=== PATIENT | female | born 1930 | race Caucasian/White ===

== ENCOUNTER 2017-03-23 05:41 | Day surgery (SDC) | payer MEDICARE, OTHER ==
[~2017-03-23] VITALS: Ht 170.2 cm; Wt 69.4 kg
[2017-03-23] VITALS (10 sets, daily range): BP systolic 103–118; BP diastolic 46–64; PULSE 62–78; RESP 11–20; O2SAT 93–100
[~2017-03-23 05:41] MED LIST: CHOL10008 PO; Lactated Ringer's 1,000 ML IV ONE; MULT-1018 PO; TIMO5DRO5 AFFECT_EYE
[2017-03-23] MEDS ORDERED: Dexamethasone 4 mg/mL Inj ONE (05:42)
[2017-03-23] MEDS ORDERED: MetoCLOpramide 5 mg/mL 2 mL Inj ONE (05:42)
[2017-03-23] MEDS ORDERED: Propofol 10,000 mCg/mL 20 mL Inj ONE (05:42)
[2017-03-23] MEDS ORDERED: Ondansetron 2 mg/mL 2 mL Inj ONE (05:42)
[2017-03-23] MEDS ORDERED: CeFAZolin Inj 2 GM in IV Premix 1 EACH IV SCH (06:00)
--- NOTE | 2017-03-23 07:14 | PCM.HPANE ---
Patient Data Surgeon Admitting Provider: Attending Provider:Jose Francisco Craig MD Primary Care Physician:Hung Other Provider:Aurora Allen Anesthesia Reason for Visit Squamous Cell Carcinoma Of Face Ht/WT & BMI Height (Feet): 5 Height (Inches): 7 Weight (Kilograms): 69.4 Body Mass Index 24.00 Allergies Coded Allergies: No Known Allergies (Unverified , 03/19/17) Past Anesthesia History Anesthesia History: Denies:: Anesthesia Reactions, Malignant Hyperthermia Diabetes History Hx Diabetes?: No MRSA MRSA: No Medications Home Meds Incl Beta Jose Alejandro: No Reported Medications Multivitamin (Multi Vitamin Daily)1 Each Tablet1 Each PO DAILY 30 Days Ref 0 CHEWABLE 03/19/17 Cholecalciferol (Vitamin D3) (Vitamin D3)1,000 Unit Tab.chew1,000 Unit PO DAILY 03/19/17 Timolol Maleate 5 Ml Drops1 Gtt AFFECT_EYE DIRECTED PRN GLAUCOMA 03/19/17 History History of ENT Problems?: No HEENT History: Positive for:: Cataracts (STABLE CATARACT) Glaucoma Denture Type: None Teeth Condition: Within Normal Limits Hx of Heart Problems?: No Cardiovascular History: Denies:: Heart Murmur Hypertension Hx of Respiratory Problem?: Yes Respiratory History: Positive for:: Pulmonary Embolism (HX OF) Denies:: Use of C-PAP Machine Hx Neurologic Problems?: No Hx of GI Problems?: Yes Hx of Problems?: No Female Hx: Denies:: Currently Skin History: Positive for:: History Skin Disorders? (FACIAL SKIN CA=CURRENT PROBLEM S/P MOHS W/ RECONSTRUCTION) Denies:: Pressure Ulcers Hx Musculoskeletal Problems?: No Hx of Psycho/Social Problems?: No Hx Surgeries?: Yes (MOHS W/ RECONSTRUCTION) Hx Any Other Health Problems?: Yes Other History: Positive for:: Cancer (BASAL CELL CA, SQUAMOUS CELL CAQ, MELANOMA) Denies:: Endocrine Disease Hospitalization Thyroid Disease Hx Diabetes: No Hx Alcohol Use: YesAlcoholic Drinks Per Day: 1-2 WEEKHave You Smoked inLast 12 mo: No Stop/Bang Treated for Sleep Apnea?: No Do You Have a CPAP Machine?: No S-Snoring: Do You Snore Loudly: No T-Tired: feel tired, fatigued: No O-Obsered: Observed not breath: No P-Blood Pressure: treated: No B- Body Mass Index > 35 kg/m2: No A- Age over 50: Yes N- Neck Large Circumference: No G- Gender Male: No LEROY Total Score: 1 LEROY Risk Assessment: Low Risk, <3 Yes Risk Assessment Category Category 1A: Patient has history of documented sleep apnea, and HAS NOT received any narcotic, sedative or anesthesia administration during this stay. Category 1B: Patient has history of documented sleep apnea, and HAS received any narcotic , sedative or anesthesia administration during this stay Category 2: Patient has SUSPECTED Obstructive Sleep Apnea, and HAS received any narcotic , sedative or anesthesia administration during this stay. Category 3: Patient has SUSPECTED Obstructive Sleep Apnea and HAS NOT received narcotic, sedative or anesthesia administration during this stay. Category 4: Outpatient in Procedural Areas with known sleep apnea or who screen positive for High Risk via the STOP/BANG questionnaire. Exam Exam Vital Signs Vital Signs Date Time Temp Pulse Resp B/P Pulse Ox O2 Delivery O2 Flow Rate FiO2 03/23/ 06:25 36.4 62 16 103/48 100 Room Air General Appearance: Oriented X3 HEENT/AIRWAY: MP 2 Lungs: Normal Air Movement Heart: Regular Rate/Rhythm Plan Impression Patient chart reviewed, patient interviewed and anesthestic plan with risks, benefits, and alternatives discussed, and informed consent obtained. ASA Physical Status: ASA2 Mod Systemic Disease Anesthetic Plan: GA Bene/Risks/Altern/Consents: Yes HP Complete Prior to Induction: Yes Thierry Palmer MD March 23, 2017 07:14
[2017-03-23] MEDS ORDERED: Lactated Ringer's 1,000 ML IV ONE (07:27)
[2017-03-23] MEDS ORDERED: Phenylephrine 10,000 mCg/mL Inj IVPUSH PRN (08:05)
[2017-03-23] MEDS ORDERED: EPHEDrine Sulfate 50 mg/mL Inj IVPUSH PRN (08:05)
[2017-03-23] MEDS ORDERED: fentaNYL-PF 50 mCg/mL 2 mL Inj IVPUSH PRN (08:05)
[2017-03-23] MEDS ORDERED: Lactated Ringer's 500 ML IV PRN (08:05)
[2017-03-23] MEDS ORDERED: HYDROmorphone 1 mg/mL Inj IVPUSH PRN (08:05)
[2017-03-23] MEDS ORDERED: MetoCLOpramide 5 mg/mL 2 mL Inj IVPUSH PRN (08:05)
[2017-03-23] MEDS ORDERED: Lactated Ringer's 1,000 ML IV SCH (08:05)
[2017-03-23] MEDS ORDERED: Dexamethasone 4 mg/mL Inj IVPUSH PRN (08:05)
[2017-03-23] MEDS ORDERED: Ondansetron 2 mg/mL 2 mL Inj IVPUSH PRN (08:05)
[2017-03-23] MEDS ORDERED: Lidocaine 1%/Epi 1:100,000 30 mL MDV INFIL ONE (08:24)
--- NOTE | 2017-03-23 08:28 | HP ---
[address] [address] HISTORY AND PHYSICAL PATIENT: SMITA SINGH : 1930 MR#: [id number] ADMIT: 03/23/2017 JOB ID: [id number] CHIEF COMPLAINT: Squamous cell carcinoma, right hinduism. HISTORY OF PRESENT ILLNESS: The patient was seen in my clinic for a history of 2-3 months growing mass in the right hinduism area. She is known to me for a history of recurrent extensive basal cell carcinoma requiring Mohs excision at an outside facility followed by a large cervicofacial flap reconstruction that was approximately 2 to 2-1/2 years ago. Recently in the last couple months she has noted a growing mass in the right hinduism. She describes the size as walnut size and it is slightly painful. She denies any dry eye issues or vision change. She has not noticed any other skin lesions or mass lesions anywhere else on the head and neck area. She denies any history of weight loss. Pain she describes as mild. REVIEW OF SYSTEMS: Positive for basal cell carcinoma right face. She denies any cardiac or pulmonary issues. She denies any issues in terms of connective tissue disorders, poor wound healing, abnormal scarring of bleeding disorders. Positive history of glaucoma and a mild cataract. PAST MEDICAL HISTORY: Significant for: 1. Basal cell carcinoma right face. 2. Cataracts. 3. 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 MEDICATIONS: Include Timolol, daily multivitamin, vitamin D and vitamin eye drops. ALLERGIES: She has no known drug allergies. FAMILY HISTORY: Significant for melanoma in one brother. Another skin cancer and another brother and pancreatic cancer in her son. SOCIAL HISTORY: She drinks alcohol rarely on social occasions. She is a never smoker. PHYSICAL EXAMINATION: The patient is an 84-year-old female who is alert and oriented to person, place and time. Weight is 153. Blood pressure is 106/65. 02 sats 96%. Pulse is 71, respirations 16. She is afebrile with no icterus or jaundice. No rashes, pallor. No appreciable adenopathy is noted on the head and neck examination except for the 2-1/2 to 3 cm mass which is semi- tethered to deeper tissues but not to the overlying skin of the right hinduism. Her reconstructive surgery scars in the right face are well-healed and mature. Neck range of motion is normal. Oral airway and nasal airway widely patent. Abdomen is soft, nontender, nondistended. She is moving all extremities without gross motor limitation or sensory deficits proximally and distally. A CT scan of the head and neck with contrast was done preoperatively. This revealed a 3 cm x 2 cm right hinduism mass which is contrast-enhancing. ASSESSMENT: Squamous cell carcinoma right hinduism, stage T2 N0 M0. The patient is being taken back to the operating room today for wide local excision with frozen section margins. The plan will be for facial nerve monitor evaluation and monitoring intraoperatively of the facial nerve branches to the frontal and perioral regions; namely, the eyelids, if it is available. Postoperatively she will be having adjuvant radiation therapy. She has met with Dr. Farrell at [facility] for this.
[2017-03-23] MEDS ORDERED: Bacitracin Ointment Packet TOPICAL ONE (11:19)
[2017-03-23] MEDS ORDERED: HYDROcodone-APAP 5-325 mg Tablet PO PRN (12:10)
--- NOTE | 2017-03-23 12:13 | PCM.ANEP1 ---
Post Anesthesia PACU Phase 1 Assessment Vital Signs Vital Signs Date Time Temp Pulse Resp B/P Pulse Ox O2 Delivery O2 Flow Rate FiO2 03/23/17 12:05 36.4 70 13 110/46 95 Nasal Cannula 2 03/23/17 12:00 72 11 104/50 93 Room Air 03/23/17 11:55 75 17 113/56 97 Room Air 03/23/17 11:50 76 18 112/52 97 Simple Mask 10 03/23/17 11:45 78 20 116/56 96 Simple Mask 10 03/23/17 11:40 77 17 117/57 96 Simple Mask 10 03/23/17 11:37 36.5 77 20 115/53 96 Simple Mask 10 03/23/17 06:25 36.4 62 16 103/48 100 Room Air Anesthetic Administered: GA Level of Alertness: Awake, talking Pain: No Nausea or Vomiting: No CV Function & Hydration Stable: Yes Airway Device: Lungs: Normal Air Movement PACU Phase 2 Assessment Patient Instructions Provided: N/A Thierry Palmer MD March 23, 2017 12:13
--- NOTE | 2017-03-23 12:20 | PCM.DISURG ---
Surgical Discharge Instruction Date of Service March 23, 2017 Dates of Hospitalization Date of Hospital Admission Providers Admitting Physician: Primary Care Physician: Hung Attending Physician: Jose Francisco Craig MD Discharge Diagnosis Discharge Diagnosis Squamous cell carcinoma right face Diet Discharge Diet: No restrictions Activity Discharge Activity-General: No lifting >15 pounds for 2 weeks Dressing and Incisional Care Dressing Care: Other (apply antibiotic ointment twice daily to right jain dressing and back of left ear) Hygiene: May shower Additional Instructions Discharge Instructions Rest with head of bed elevated 30-45 degrees (above the level of the chest). Avoid bending over at the waist and any strenuous activity. Eyes: Apply moisturizing eye drops (lubrifresh or artificial tears) twice daily and as needed to prevent eye dryness. Follow Up Plan Follow Up Plan Call Dr. Craig's office at for follow up appointment tomorrow. Please call Dr. Craig's cell phone for any questions or concerns after hours or over the weekend. Call your provider for: Fever, Chills, Nausea, Vomiting, Increasing wound pain , Discharge @ incision, pus discharge Jose Francisco Craig MD March 23, 2017 12:20
[2017-03-23] MEDS ORDERED: HYDR-4003 PO (12:22)
--- NOTE | 2017-03-23 13:49 | OP ---
[address] [address] OPERATIVE REPORT PATIENT: SMITA SINGH : 1930 MR#: [id number] ADMIT: 03/23/2017 JOB ID: [id number] DATE OF SURGERY: 03/23/2017 SURGEON: Jose Francisco Craig MD. PREOPERATIVE DIAGNOSIS(ES): Squamous cell carcinoma face, right rastafari, subcutaneous. POSTOPERATIVE DIAGNOSIS(ES): Squamous cell carcinoma face, right rastafari, subcutaneous. INDICATIONS: Growing mass with tissue diagnosis of squamous cell carcinoma determined by fine-needle aspiration as an outpatient prior to surgery. PROCEDURE PERFORMED: 1. Wide local excision of squamous cell carcinoma, right rastafari region of the face with frozen section margin control and intraoperative facial nerve monitoring. 2. Full-thickness skin graft reconstruction of defect created. FINDINGS: Tumor was approximately 3 x 2 cm, surrounded by inflammatory changes, tightly adherent to orbicularis oculi, facial nerve branches, as well as frontalis branch of the facial nerve. Postoperatively, normal eye closure with limited right eyebrow elevation was observed. ESTIMATED BLOOD LOSS: Was 50 mL. ANESTHESIA: General endotracheal anesthesia. Full-thickness skin graft total surface area was 3 x 1.5 cm for total of 4.5 square cm. No complications. DESCRIPTION OF PROCEDURE: After reviewing informed consent with the patient, she was taken back to the operating room for anesthesia induction. Once intubated, the EMG monitoring electrode needles were placed. Local anesthetic was infiltrated into the surgical field of the right rastafari as well as the left postauricular skin graft donor site. Face was then prepped and draped in the usual fashion. Local anesthetic was infiltrated prior to the prep. The patient was then again prepped and draped sterilely. Before making the incision, time-out was performed in the usual fashion. A 15 blade scalpel was then used to make an elliptical incision encompassing the area of the subcutaneous lesion in the right rastafari. The long axis of the incision ellipse was parallel to relaxed skin tension lines. Blunt dissection was then taken down through the skin and subcutaneous tissues to the level of the mass. A combination of blunt and sharp dissection was then taken around the mass. Any tissue which appeared to be neural was stimulated to determine whether or not neural tissue was present. Bipolar electrocautery with low settings at 12 was utilized sparingly for hemostasis. The superficial temporal artery as well as the frontalis branch of the facial nerve were identified superior and laterally. Blunt dissection deep to the mass revealed tight adhesions to the orbicularis oculi nerve as it arborized and approached the neuromuscular junction of the right orbicularis oculi muscle. The lateral aspect of the muscle did appear to be intimately involved with the tumor mass, and therefore a limited excision of the lateral orbicularis oculi muscle was done. Once dissection was completed around the tumor, the specimen was removed. the superior or 12 o'clock position was marked with A 4-0 silk stitch and sent in formalin for permanent histological evaluation OF final margins. During the procedure, a superficial lateral subcutaneous soft tissue specimen was sent. this was determined to be negative for evidence of disease. Three other frozen section margins were also sent. One was deep neural tissue. This was fibrous tissue adherent to the orbicularis oculi nerve branches left intact in the deep aspect of the surgical wound anteriorly. Additionally, a specimen was sent of the deep temporal fascia, labeled as "deep temporal margin." This was negative and free of disease. The only one that was positive (and this was questionable due to crush artifact) was the specimen labeled as neural tissue inferior. This was specimen trimmed off visible orbicularis oculi nerve tissue without complete transection of the nerve. After the tumor was extirpated and it was determined no active bleeding was occurring, the superficial temporal artery was covered by advancing dermis over dermis, the subcutaneous tissue over the artery. Attention was then turned to the left postauricular area. Full-thickness skin graft was then harvested in routine fashion and the donor site was closed with deep dermal 4-0 Vicryl inverted interrupted sutures and a running locking 5-0 fast gut skin stitch. The skin graft was then trimmed, thinned, and perforated before being placed in the primary defect site. All wound edges of the skin graft were then affixed with running locking and simple interrupted 5-0 fast gut sutures. Routine bolster dressing with Xeroform gauze was then secured in place over the skin graft with 4-0 silk bolster sutures. The patient was then aroused from anesthesia, extubated, and transferred to recovery area in stable condition with no evidence of acute postoperative complications. She is cleared to discharge home later today in the care of family, specifically her granddaughter, Teresa, who is a practicing nurse in the [facility].
== END 2017-03-23 23:59 | disposition home or self-care (01) ==
LOC: SAS 05:41
PROVIDERS: ATTEND Otolaryngology
DX: C44.329 Squamous cell carcinoma of skin of other parts of face (principal); Z85.820 Personal history of malignant melanoma of skin; Z86.711 Personal history of pulmonary embolism
CPT/HCPCS: 11643; 15240; 95867; G0453; J0690; J1100; J2405; J2765; J7120